=== PATIENT | female | born 1985 | race Caucasian/White ===

== ENCOUNTER 2022-01-11 14:46 | Emergency (ER) | payer MEDICAID ==
[~2022-01-11] VITALS: Ht 165.1 cm; Wt 58.2 kg
[2022-01-11] MEDS ORDERED: hydrocort. acetate/pramoxine 10gm bottle RC STA (15:47)
[2022-01-11] MEDS ORDERED: phenylephrine/cocoa butter (Preparation H) suppository RC PRN (15:50)
[2022-01-11] MEDS ORDERED: PHENYLEPH/MIN OIL/PETROLAT hemorrhoid oint 57GM tube RC PRN (16:25)
[2022-01-11 17:05] VITALS: BP 104/70
== END 2022-01-11 17:07 | disposition home or self-care (01) ==
LOC: ER 14:46
DX: K64.9 Unspecified hemorrhoids (principal)
CPT/HCPCS: 99283